=== PATIENT | male | born 1970 | race Caucasian/White ===

== ENCOUNTER → 2017-01-31 | Outpatient (CLI) | payer OTHER ==
[~2017-01-31] MED LIST: GADOBUTROL 10 ML VIAL IVP ONE
== END ==
LOC: FIMAGING 07:06
PROVIDERS: ATTEND Orthopaedic Surgery
DX: M25.862 Other specified joint disorders, left knee (principal); M22.42 Chondromalacia patellae, left knee; M76.892 Other specified enthesopathies of left lower limb, excluding foot
CPT/HCPCS: A9585